=== PATIENT | female | born 1995 | race Caucasian/White ===

== ENCOUNTER 2021-06-12 13:33 | Emergency (ER) | payer MEDICAID, SELFPAY ==
--- NOTE | ~2021-06-12 | US_ITS ---
EXAMINATION: ULTRASOUND OF THE PELVIS CLINICAL INFORMATION: Vaginal bleeding. History of on 05/05/2021. Quantitative beta-hCG level of 136. COMPARISON: None. TECHNIQUE: Transabdominal and transvaginal pelvic ultrasound. Doppler evaluation including arterial as well as venous spectral Doppler waveforms and color Doppler were performed. FINDINGS: The uterus is anteverted. The endometrial stripe thickness is normal, measuring 1.9 cm in thickness. Heterogeneous mixed echogenicity associated with cystic changes is noted within the endometrial cavity, appear hypervascular. Given the patient's history of vaginal bleeding and positive beta-hCG level of 136 and history of prior , possible differential diagnostic consideration would include retained product of conception, superimposed infection/endometritis as well as gestational trophoblastic disease with and without blood clot within the endometrial cavity. Further differentiation cannot be made based on this imaging appearance alone. Gestational trophoblastic disease is considered less likely given the low beta-hCG level of 136. The right ovary measures 3.6 x 2.1 x 1.6, shows subcentimeter follicles otherwise appear unremarkable. The left ovary measures 4.2 x 3.1 x 3.3 cm with superimposed likely hemorrhagic follicle measuring 3.2 x 3.1 x 2.8 cm. No adnexal mass or free fluid collection seen. A transvaginal study was performed in addition to the transabdominal study which did not yield an adequate examination of the uterus and ovaries due to superimposed distended gas-filled loops of bowel. US/US OB pelvic and transvaginal IMPRESSION: 1. Abnormal uterus with thickened endometrial stripe measuring 1.9 cm and heterogeneous mixed echogenicity associated with cystic changes and hypervascularity within the endometrial cavity. Given the patient's history, possible differential diagnostic consideration would include retained product of conception, endometritis/infection and less likely possibility of gestational trophoblastic disease with or without blood clot within the endometrial cavity. Further differentiation cannot be made based on this imaging appearance alone. 2. Likely hemorrhagic follicle within the left ovary and morphologically normal-appearing right ovary.
[2021-06-12 14:20] VITALS: BP 142/88; PULSE 77; RESP 20; TEMP 35.9; O2SAT 99; BMI 31.4
[2021-06-12 14:58] LABS: Glucose Urine UA NEG (NEG); Leukocyte Esterase Urine NEG (NEG); Nitrite Urine NEG (NEG); Specific Gravity - Urine 1.025 (1.005-1.025); UACC Culture Trigger NO; Urine Blood 2+ (NEG); Urine Ketones NEG (NEG); Urine Protein TRACE MG/DL (NEG-TRACE)
[2021-06-12 15:02] LABS: Appearance Urine HAZY; Color Urine YELLOW
[2021-06-12 15:06] LABS: UPreg QC Valid YES; Urine Pregnancy POSITIVE (NEGATIVE)
[2021-06-12 15:07] LABS: Squamous Epithelial Cell Urine 2+ /LPF; WBC Urine 0-2 /HPF (0-4)
[2021-06-12 16:27] LABS: MANUAL DIFF FLAG NO
[2021-06-12 16:29] LABS: Basophils Percent Auto 0.2 % (0-2); Eosinophils Absolute Auto 0.3 X10*3/uL (0.0-0.4); Hematocrit 39.3 % (37-47); Hemoglobin 13.2 g/dl (12.0-16.0); Imm Gran Abs Auto 0.02 X10*3/uL (0.00-0.03); Imm Gran Pct Auto 0.4 % (0.0-0.4); Lymphocytes Absolute Auto 1.2 X10*3/uL (1.2-4.9); Mean Corpuscular HGB Conc 33.6 g/dl (31.0-35.0); Mean Corpuscular Volume 92.3 fL (80-98); Mean Platelet Volume 8.8 fL (9.4-12.3); Monocytes Absolute Auto 0.5 X10*3/uL (0.1-1.2); Neutrophils Absolute Auto 3.6 X10*3/uL (2.0-8.3); Neutrophils Percent Auto 63.4 % (45-73); Platelet Count 170 X10*3/uL (160-400); Red Blood Count 4.26 X10*6/uL (4.20-5.50); Red Cell Distribution Width 12.1 % (11.0-16.0); White Blood Count 5.6 X10*3/uL (4.8-10.8)
[2021-06-12 17:00] LABS: Alanine Aminotransferase 17 U/L (0-31); Albumin Level 4.1 g/dL (3.5-5.0); Alkaline Phosphatase 80 U/L (39-117); Anion Gap 12 (12-20); Aspartate Amino Transferase 18 U/L (5-31); Bilirubin Total 0.5 mg/dL (0.0-1.0); Blood Urea Nitrogen 12 mg/dL (9-16); Carbon Dioxide 23 mmol/L (22-29); Chloride 109 mmol/L (96-108); Creatinine Clr Calc Pharmacy 108.4; Estimated Glomerular Filt Rate > 60; Glucose Random 88 mg/dL (60-115); Potassium 3.8 mmol/L (3.3-5.1); Sodium 140 mmol/L (135-145); Total Protein 6.5 g/dL (6.5-8.0)
[2021-06-12 17:29] LABS: HCG Quantitative 136 mIU/mL
--- NOTE | 2021-06-12 18:45 | ED_ITS ---
HPI - General Chief complaint: Vaginal Bleeding Stated complaint: bleeding Time Seen by Provider: 06/12/21 16:54 Source: patient Mode of arrival: ambulatory Limitations: no limitations History of Present Illness HPI Narrative: 26-year-old female who is [id number] who [facility] and has a follow-up appointment next presenting to the ED with complaints of suprapubic abdominal cramping with increasing vaginal bleeding with clots that started this morning and a positive home test on 06/02/2021. She reports when she had the vaginal suppository she did not bleed much and she has been spotting since 05/05/2021. She reports that today was the 1st day she started having abdominal cramping with heavy vaginal bleeding with clots. She denies any fevers, dizziness, headaches, chest pain, shortness of breath, palpitations, radiation of the abdominal pain, diarrhea, constipation, dysuria, abnormal vaginal discharge, thoughts of STDs or any other symptoms complaints or concerns at this time. MD Complaint: abdominal pain and vaginal bleeding Onset (ago): hour(s) Pain Consistency: constant Location: abdomen (Suprapubic abdominal cramping) Severity: mild Quality: Cramping Relieving factors: none Exacerbating factors: none Associated symptoms: denies other symptoms Vaginal discharge: none Vaginal bleeding: heavy and clots Related Data : 3 Para: 1 Allergies Allergy/AdvReac Type Severity Reaction Status Date / Time No Known Allergies Allergy Unverified 07/31/20 16:23 [No Known Allergies*] Review of Systems Review of Systems: Constitutional : No Fever, No Chills ENT/Mouth : No sore throat, No Rhinorrhea Eyes: No Eye Pain, No Redness Cardiovascular : No Chest Pain, No SOB Respiratory : No Cough, No Sputum, No Wheezing Gastrointestinal : No Nausea, No Vomiting, No Diarrhea, positive abdominal pain, Genitourinary : positive irregular bleeding, No Dysuria, No Urinary Frequency, No pelvic pain, No vaginal discharge, no hematuria Musculoskeletal : No Myalgias Skin : No rash Neuro : No Weakness, No Headache Psych : No Anxiety/Panic, No Depression Heme/Lymph: No bruising, No Lymphadenopathy Endocrine : No Polyuria, No Polydipsia Yes all other systems are reviewed and are negative PMFSH Past Medical History Attestation statement: The following information was validated with the patient. Medical History : 3 Para: 1 Social History Social History Advance Directives: No Advance Directives Information Provided: No Physical Exam Vital Signs: Vital Signs: Last Vital Signs Temp 99 F 06/12/21 18:54 Pulse 67 06/12/21 18:54 Resp 12 06/12/21 18:54 BP 136/81 06/12/21 18:54 Pulse Ox 100 06/12/21 18:54 Body Mass Index 31.4 vital signs have been reviewed as normal and appeared to be correct. Blood pressure hypertensive 142/88 Heart rate normal. Respiration rate normal. Temperature normal. Oxygen saturation normal. Appearance: Alert. Oriented X3. No acute distress. Head: Normal external exam. Normocephalic. Atraumatic. Eyes: PERRLA. EOMI. Conjunctiva and sclera normal. Eyelids normal. ENT: Pharynx normal. Uvula midline. Moist mucous membranes. Neck: Normal inspection. Neck supple. FROM. No adenopathy. No meningeal signs. CVS: Normal heart rate and rhythm. Heart sound normal. No murmurs noted. Pulses normal throughout. Respiratory: No respiratory distress. Painless inspiration. Breath sounds normal. No wheezes/rales/rhonchi noted. Chest nontender. No accessory muscle usage noted or decreased air movement noted. Abdomen: Soft and nontender. Bowel sounds normal in all 4 quadrants. No di stention noted. No organomegaly noted. No visible injury noted. : Supervised by PCT. Normal external appearance of urethra. No lesions/lacerations or discharge or tenderness noted. Speculum exam normal appearance/palpation of vagina normal. Patient is noted to have bright red blood on speculum exam although once I suction out all the blood patient coughed a few times and no active bleeding although cervical os appears dilated approximately 1-2 cm. No abnormal vaginal discharge noted. Otherwise no vaginal erythema. No foreign bodies noted. No vaginal laceration/lesions noted. No tissue present in vagina. No vaginal mass noted. No vaginal swelling noted. No vaginal tenderness noted. Normal appearance of cervix. Normal palpation of cervix. No abnormal cervical discharge noted. No cervical lesion/mass. No Bartholin cyst noted. No cervical motion tenderness noted. Negative chandelier sign. Normal bimanual exam. Uterine size normal. Bladder normal to palpation. Uterine consistency normal. Normal cervical palpation. Uterine mobility normal. Uterine shape normal. Normal adnexa. Normal rectovaginal exam. Back: No CVA tenderness. Full range of motion noted. Skin: Skin warm and dry. Normal skin color. Normal skin turgor. No rashes/lesions/lacerations noted. Extremities: Extremities exhibit normal range of motion. Extremities nontender. Neuro: Oriented X 3. No motor deficit. No sensory deficit. Reflexes normal. Course Course Course Narrative: 16:15pm - 26-year-old female who is [id number] who [facility] and has a follow-up appointment next presenting to the ED with complaints of suprapubic abdominal cramping with increasing vaginal bleeding with clots that started this morning and a positive home test on 06/02/2021. She reports when she had the vaginal suppository she did not bleed much and she has been spotting since 05/05/2021. She reports that today was the 1st day she started having abdominal cramping with heavy vaginal bleeding with clots. Plan: Labs, serum quant, UA, UHCG, speculum exam, ultrasound Ob pelvic/transvaginal then re-evaluate Reevaluation(s) Reevaluation #1: - labs reviewed and patient with a serum quant of 136. All other labs are within normal limits. with blood and positive otherwise no evidence of UTI. - awaiting Ob/transvaginal ultrasound at this time we will re-evaluate. Time: 18:52 Reevaluation #2: - patient had an abnormal transvaginal/Ob ultrasound therefore I consulted Dr. Frankel he came and evaluated the patient and reported that she is not actively bleeding/hemorrhaging and she has mild pain there for plan is for her to be discharged after she is given RhoGam and instructions [facility] the retained products. She has pending gonorrhea/chlamydia/bacterial vaginosis/yeast and Trichomonas panel. Will DC home with instructions return if any new or worsening symptoms to [facility]. Patient and mother at bedside understand agree to this plan. Time: 21:33 MDM - OB/Uterine Contractions Medical Records Attestation: I reviewed the patient's medical records. Lab Data Attestation: I reviewed the patient's lab results. Result diagrams: 06/12/21 16:17 06/12/21 16:17 Labs: Lab Results 06/12/21 06/12/21 06/12/21 Range/Units 14:41 14:41 16:17 WBC 5.6 (4.8-10.8) X10*3/uL RBC 4.26 (4.20-5.50) X10*6/uL Hgb 13.2 (12.0-16.0) g/dl Hct 39.3 (37-47) % MCV 92.3 (80-98) fL MCH 31.0 (27.0-33.0) pg MCHC 33.6 (31.0-35.0) g/dl RDW 12.1 (11.0-16.0) % Plt Count 170 (160-400) X10*3/uL MPV 8.8 L (9.4-12.3) fL Immature Gran % (Auto) 0.4 (0.0-0.4) % Neut % (Auto) 63.4 (45-73) % Lymph % (Auto) 22.0 (20-40) % [place] % (Auto) 8.0 (2-11) % Eos % (Auto) 6.0 H (0-4) % Baso % (Auto) 0.2 (0-2) % Lymph # (Auto) 1.2 (1.2-4.9) X10*3/uL [place] # (Auto) 0.5 (0.1-1.2) X10*3/uL Eos # (Auto) 0.3 (0.0-0.4) X10*3/uL Baso # (Auto) 0.0 (0.0-0.2) X10*3/uL Abs Immat Gran (auto) 0.02 (0.00-0.03) X10*3/uL Absolute Neuts (auto) 3.6 (2.0-8.3) X10*3/uL Absolute Nucleated RBC 0.000 (0.0-0.012) X10*3/uL Nucleated RBC % (auto) 0.0 (0.0-0.2) /100WBC Sodium (135-145) mmol/L Potassium (3.3-5.1) mmol/L Chloride (96-108) mmol/L Carbon Dioxide (22-29) mmol/L Anion Gap (12-20) BUN (9-16) mg/dL Creatinine (0.5-1.4) mg/dL Estim Creat Clear Calc Estimated GFR Random Glucose (60-115) mg/dL Calcium (8.4-10.2) mg/dL Total Bilirubin (0.0-1.0) mg/dL AST (5-31) U/L ALT (0-31) U/L Alkaline Phosphatase (39-117) U/L Total Protein (6.5-8.0) g/dL Albumin (3.5-5.0) g/dL Beta HCG, Quant mIU/mL Urine Color YELLOW Urine Appearance HAZY Urine pH 6.0 (5.0-8.0) Ur Specific [place] 1.025 (1.005-1.025) Urine Protein TRACE (NEG-TRACE) MG/DL Urine Glucose (UA) NEG (NEG) MG/DL Urine Ketones NEG (NEG) MG/DL Urine Blood 2+ H (NEG) Urine Nitrite NEG (NEG) Ur Leukocyte Esterase NEG (NEG) Urine RBC 76-150 H (0) /HPF Urine WBC 0-2 (0-4) /HPF Ur Squamous Epith Cells 2+ /LPF Urine Bacteria NONE /LPF Urine Test POSITIVE H (NEGATIVE) Blood Type 06/12/21 06/12/21 Range/Units 16:17 16:17 WBC (4.8-10.8) X10*3/uL RBC (4.20-5.50) X10*6/uL Hgb (12.0-16.0) g/dl Hct (37-47) % MCV (80-98) fL MCH (27.0-33.0) pg MCHC (31.0-35.0) g/dl RDW (11.0-16.0) % Plt Count (160-400) X10*3/uL MPV (9.4-12.3) fL Immature Gran % (Auto) (0.0-0.4) % Neut % (Auto) (45-73) % Lymph % (Auto) (20-40) % [place] % (Auto) (2-11) % Eos % (Auto) (0-4) % Baso % (Auto) (0-2) % Lymph # (Auto) (1.2-4.9) X10*3/uL [place] # (Auto) (0.1-1.2) X10*3/uL Eos # (Auto) (0.0-0.4) X10*3/uL Baso # (Auto) (0.0-0.2) X10*3/uL Abs Immat Gran (auto) (0.00-0.03) X10*3/uL Absolute Neuts (auto) (2.0-8.3) X10*3/uL Absolute Nucleated RBC (0.0-0.012) X10*3/uL Nucleated RBC % (auto) (0.0-0.2) /100WBC Sodium 140 (135-145) mmol/L Potassium 3.8 (3.3-5.1) mmol/L Chloride 109 H (96-108) mmol/L Carbon Dioxide 23 (22-29) mmol/L Anion Gap 12 (12-20) BUN 12 (9-16) mg/dL Creatinine 0.73 (0.5-1.4) mg/dL Estim Creat Clear Calc 108.4 Estimated GFR > 60 Random Glucose 88 (60-115) mg/dL Calcium 9.0 (8.4-10.2) mg/dL Total Bilirubin 0.5 (0.0-1.0) mg/dL AST 18 (5-31) U/L ALT 17 (0-31) U/L Alkaline Phosphatase 80 (39-117) U/L Total Protein 6.5 (6.5-8.0) g/dL Albumin 4.1 (3.5-5.0) g/dL Beta HCG, Quant 136 mIU/mL Urine Color Urine Appearance Urine pH (5.0-8.0) Ur Specific [place] (1.005-1.025) Urine Protein (NEG-TRACE) MG/DL Urine Glucose (UA) (NEG) MG/DL Urine Ketones (NEG) MG/DL Urine Blood (NEG) Urine Nitrite (NEG) Ur Leukocyte Esterase (NEG) Urine RBC (0) /HPF Urine WBC (0-4) /HPF Ur Squamous Epith Cells /LPF Urine Bacteria /LPF Urine Test (NEGATIVE) Blood Type AB Negative Imaging Data Pelvic/transvaginal ultrasound: Attestation: I personally reviewed and interpreted this imaging study as follows: Radiologist's impression: FINDINGS: The uterus is anteverted. The endometrial stripe thickness is normal, measuring 1.9 cm in thickness. Heterogeneous mixed echogenicity associated with cystic changes is noted within the endometrial cavity, appear hypervascular. Given the patient's history of vaginal bleeding and positive beta-hCG level of 136 and history of prior , possible differential diagnostic consideration would include retained product of conception, superimposed infection/endometritis as well as gestational trophoblastic disease with and without blood clot within the endometrial cavity. Further differentiation cannot be made based on this imaging appearance alone. Gestational trophoblastic disease is considered less likely given the low beta-hCG level of 136. The right ovary measures 3.6 x 2.1 x 1.6, shows subcentimeter follicles otherwise appear unremarkable. The left ovary measures 4.2 x 3.1 x 3.3 cm with superimposed likely hemorrhagic follicle measuring 3.2 x 3.1 x 2.8 cm. No adnexal mass or free fluid collection seen. A transvaginal study was performed in addition to the transabdominal study which did not yield an adequate examination of the uterus and ovaries due to superimposed distended gas-filled loops of bowel. US/US OB pelvic and transvaginal IMPRESSION: ? 1. Abnormal uterus with thickened endometrial stripe measuring 1.9 cm and heterogeneous mixed echogenicity associated with cystic changes and hypervascularity within the endometrial cavity. Given the patient's history, possible differential diagnostic consideration would include retained product of conception, endometritis/infection and less likely possibility of gestational trophoblastic disease with or without blood clot within the endometrial cavity. Further differentiation cannot be made based on this imaging appearance alone. 2. Likely hemorrhagic follicle within the left ovary and morphologically normal-appearing right ovary. Critical Care Time Critical Care Time Critical Care Time: Yes Total Critical Care Time: 60 Attestation: I personally attest to this time spent taking care of the patient Discharge Plan Discharge Clinical Impression: Incomplete , Retained products of conception Patient Disposition: Home, Self-Care Instructions: Dilation and Curettage (DC) Additional Instructions: [facility] products of the incomplete you had. Below is the ultrasound results that you had. You also received RhoGam due to your blood type is AB negative. Return if you have worsening pain or bleeding. FINDINGS: The uterus is anteverted. The endometrial stripe thickness is normal, measuring 1.9 cm in thickness. Heterogeneous mixed echogenicity associated with cystic changes is noted within the endometrial cavity, appear hypervascular. Given the patient's history of vaginal bleeding and positive beta-hCG level of 136 and history of prior , possible differential diagnostic consideration would include retained product of conception, superimposed infection/endometritis as well as gestational trophoblastic disease with and without blood clot within the endometrial cavity. Further differentiation cannot be made based on this imaging appearance alone. Gestational trophoblastic disease is considered less likely given the low beta-hCG level of 136. The right ovary measures 3.6 x 2.1 x 1.6, shows subcentimeter follicles otherwise appear unremarkable. The left ovary measures 4.2 x 3.1 x 3.3 cm with superimposed likely hemorrhagic follicle measuring 3.2 x 3.1 x 2.8 cm. No adnexal mass or free fluid collection seen. A transvaginal study was performed in addition to the transabdominal study which did not yield an adequate examination of the uterus and ovaries due to superimposed distended gas-filled loops of bowel. US/US OB pelvic and transvaginal IMPRESSION: ? 1. Abnormal uterus with thickened endometrial stripe measuring 1.9 cm and heterogeneous mixed echogenicity associated with cystic changes and hypervascularity within the endometrial cavity. Given the patient's history, possible differential diagnostic consideration would include retained product of conception, endometritis/infection and less likely possibility of gestational trophoblastic disease with or without blood clot within the endometrial cavity. Further differentiation cannot be made based on this imaging appearance alone. 2. Likely hemorrhagic follicle within the left ovary and morphologically normal-appearing right ovary. Referrals: Physician,Unknown [Primary Care Provider] - 06/15/21 ([facility]) Stand Alone Forms: Work/School Release Print Language: [place]
[2021-06-12 18:54] VITALS: BP 136/81; PULSE 67; RESP 12; TEMP 37.2; O2SAT 100
--- NOTE | 2021-06-12 19:06 | PC.NURSE ---
Assumed care of pt. Pt to u/s at this time.
[2021-06-12] MEDS: Rho(D) Immune Globulin 300 MCG SYRINGE IM (21:45)
--- NOTE | 2021-06-12 21:53 | P.CONOB_ITS ---
DISPUTE RESOLUTION ANALYST - CN: HPI Data of Consult Consult date: 06/12/21 Requesting Physician: I was consulted by ALLAN Bryant regarding this patient who came in to the emergency room complaining of vaginal bleeding and pelvic cramping. The patient had medical on May 05 had passage of blood cl ots for a few hours after taking the pills and since then the patient has been having some spotting to night the patient started prior to presentation an episode of heavy vaginal bleeding and slowed down after so the patient presented to the emergency room, no additional symptoms. Primary Care Provider: Unknown Physician Consult Narrative Narrative: Veronica Alaniz is a 26 year old female cc:: CC: DIGITAL SALES MANAGER - Review of Systems Review of Systems ROS Unobtainable: All systems reviewed & are unremarkable except as noted in HPI and below OB PMFSH Past Medical History Medical History Social History Social History Advance Directives: No Advance Directives Information Provided: No Meds Allergies Allergy/AdvReac Type Severity Reaction Status Date / Time No Known Allergies Allergy Unverified 07/31/20 16:23 [No Known Allergies*] DISPUTE RESOLUTION ANALYST Physical Exam Vitals Vital signs: Temp Pulse Resp BP Pulse Ox 99 F 67 12 136/81 100 06/12/21 18:54 06/12/21 18:54 06/12/21 18:54 06/12/21 18:54 06/12/21 18:54 Body Mass Index 31.4 Constitutional General Appearance: Healthy appearing, Well-nourished and Well-developed Psychiatric Mood and Affect: active and alert, normal mood and normal affect Skin Appearance: No rashes and No lesions Lungs Respiratory Effort: No intercostal retractions Auscultation: Clear to auscultation Cardiovascular Auscultation: RRR Abdomen Auscultation/Inspection/Palpation: Normal bowel sounds, Soft, Non-distended and No tenderness Female Genitalia (Pelvic) Exam: Deferred Vulva: No lesions Vagina: Nontender and No lesions Uterus: Normal size, Mobile and Nontender Adnexa/Parametria: Adnexal Tenderness: None DISPUTE RESOLUTION ANALYST - Results Labs CBC & Chem 7: 06/12/21 16:17 06/12/21 16:17 Labs: Short CBC 06/12/21 Range/Units 16:17 WBC 5.6 (4.8-10.8) X10*3/uL Hgb 13.2 (12.0-16.0) g/dl Hct 39.3 (37-47) % Plt Count 170 (160-400) X10*3/uL BMP 06/12/21 16:17 Sodium 140 Potassium 3.8 Chloride 109 H Carbon Dioxide 23 BUN 12 Creatinine 0.73 Calcium 9.0 Liver Function 06/12/21 Range/Units 16:17 Total Bilirubin 0.5 (0.0-1.0) mg/dL AST 18 (5-31) U/L ALT 17 (0-31) U/L Alkaline Phosphatase 80 (39-117) U/L Albumin 4.1 (3.5-5.0) g/dL Urine 06/12/21 06/12/21 Range/Units 14:41 14:41 Urine Color YELLOW Urine Appearance HAZY Urine pH 6.0 (5.0-8.0) Ur Specific [place] 1.025 (1.005-1.025) Urine Protein TRACE (NEG-TRACE) MG/DL Urine Glucose (UA) NEG (NEG) MG/DL Urine Test POSITIVE H (NEGATIVE) Assessment and Plan (1) Retained products of conception: Status: Acute Discussed with the patient the finding on physical exam and ultrasound showing retained products of conception, no leukocytosis no fever. Explained to the patient since on pelvic exam there is no evidence of bleeding, no uterine or adnexal tenderness therefore no evidence of endometritis. The diagnosis is retained products of conception. Next step is to schedule a suction D&C. Since the patient is not actively bleeding no need to perform the suction D&C this evening. The patient will call [facility] our [facility]. Instructions given to patient to call from now to then if any of the following occurs fever above 100.4, heavy vaginal bleeding, abdominal/pelvic pain. All questions answered, the patient verbalized understanding.
[2021-06-13 11:47] LABS: CT PCR NOT DETECTED (Not Detect.); NG PCR NOT DETECTED (Not Detect.)
[2021-06-13 13:35] LABS: BV Int Neg Control Negative (Negative); BV Int Pos Control Positive (Positive)
== END 2021-06-12 22:21 | disposition home or self-care (01) ==
PROVIDERS: Physician Assistant Medical; Emergency Provider Internal Medicine
DX: O03.1 Delayed or excessive hemorrhage following incomplete spontaneous abortion (principal)
CPT/HCPCS: 36415; 76801; 76817; 80053; 81001; 81025; 84702; 85025; 86900; 86901; 87480; 87491; 87510; 87591; 87660; 96372; 99283; 99291; J2790

== ENCOUNTER 2022-04-29 01:18 | Emergency (ER) | payer MEDICAID, SELFPAY ==
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
[2022-04-29 01:35] VITALS: BP 149/92; PULSE 98; RESP 20; TEMP 37.2; O2SAT 99; BMI 31.4
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
[2022-04-29 04:24] VITALS: BP 138/77; PULSE 87; RESP 18; O2SAT 99
[2022-04-29] MEDS: Amoxicillin/Potassium Clav 500 MG TABLET PO (04:29)
[2022-04-29] MEDS: Diphth,Pertus(ACell),Tet Adult 0.5 ML SYRINGE IM (04:29)
== END 2022-04-29 04:35 | disposition home or self-care (01) ==
PROVIDERS: Emergency Provider Emergency Medicine
DX: S00.83XA Contusion of other part of head, initial encounter (principal); S00.81XA Abrasion of other part of head, initial encounter; S40.812A Abrasion of left upper arm, initial encounter; S40.811A Abrasion of right upper arm, initial encounter; S20.419A Abrasion of unspecified back wall of thorax, initial encounter; S20.319A Abrasion of unspecified front wall of thorax, initial encounter; Y04.2XXA Assault by strike against or bumped into by another person, initial encounter; S41.152A Open bite of left upper arm, initial encounter; Y04.1XXA Assault by human bite, initial encounter; M54.2 Cervicalgia; R51.9 Headache, unspecified; Y93.89 Activity, other specified; Y92.009 Unspecified place in unspecified non-institutional (private) residence as the place of occurrence of the external cause; Y99.9 Unspecified external cause status
CPT/HCPCS: 70450; 72125; 90471; 90715; 99283; 99284